=== PATIENT | female | born 1995 | race Caucasian/White ===

== ENCOUNTER 2020-12-23 00:51 | Emergency (ER) | payer BC ==
[2020-12-23] MEDS ORDERED: ACYCLOVIR 800 MG TAB PO STA (03:05)
[2020-12-23] MEDS ORDERED: ACET/COD 300 MG/30 MG STARTER PACK 6 TAB BTL PO STA (03:09)
--- NOTE | 2020-12-23 03:09 | ED ---
Skin/Abscess/FB HPI - General Chief complaint: Skin/Abscess/Foreign Body Stated complaint: Lt finger infection Time Seen by Provider: 12/23/20 02:51 Source: patient Mode of arrival: ambulatory - History of Present Illness Initial comments: 25 year-old female patient presents to the emergency department for evaluation of infection to the left index finger. States that it started several days ago as a tiny itchy blister. States that she itched it and it opened up. States now her finger is red, swollen, and covered in tiny white bumps. States that it is painful. She reports a simlar lesion in the back of her throat. She denies any fever or chills. Denies history of diabetes or HIV. - Related Data Previous Rx's Medication Instructions Recorded Acyclovir 800 mg PO BID #14 tablet 12/23/20 Acyclovir 5% Oint [Zovirax Oint] 1 applic TOPICAL 5XD #15 gm 12/23/20 Allergies Allergy/AdvReac Type Severity Reaction Status Date / Time No Known Allergies Allergy Verified 12/23/20 02:44 Review of Systems ROS Statement: Those systems with pertinent positive or pertinent negative responses have been documented in the HPI. ROS Other: All systems not noted in ROS Statement are negative. Past Medical History Past Medical History: No Reported History History of Any Multi-Drug Resistant Organisms: None Reported Past Surgical History: No Surgical Hx Reported Smoking Status: Vaper Past Alcohol Use History: None Reported Past Drug Use History: None Reported General Exam General appearance: alert, in no apparent distress, other (This is a well- developed, well-nourished adult female patient in no acute distress. Vital si gns upon presentation are temperature 98.9F, pulse 70, respirations 19, blood pressure 135/82, pulse ox 98% on room air.) ENT exam: Present: mucous membranes moist. Absent: normal exam, normal oropharynx (There is oral ulcer noted to the soft palate on the left) Respiratory exam: Present: normal lung sounds bilaterally. Absent: respiratory distress, wheezes, rales, rhonchi, stridor Cardiovascular Exam: Present: regular rate, normal rhythm, normal heart sounds. Absent: systolic murmur, diastolic murmur, rubs, gallop, clicks Extremities exam: Present: full ROM, normal capillary refill, other (There is circumferential erythema and swelling to the distal left index finger. There are white vesicles noted. Clear drainage. ). Absent: tenderness, pedal edema, joint swelling, calf tenderness Neurological exam: Present: alert, oriented X3, CN II-XII intact Psychiatric exam: Present: normal affect, normal mood Skin exam: Present: warm, dry, intact, normal color. Absent: rash Course Vital Signs 12/23/20 12/23/20 02:41 04:01 Temperature 98.9 F 98.6 F Pulse Rate 70 72 Respiratory 19 18 Rate Blood Pressure 135/82 130/78 O2 Sat by Pulse 98 98 Oximetry Medical Decision Making - Medical Decision Making 25 old female patient percents to the emergency department today for evaluation of infection to the left index finger. Physical examination did reveal circumferential erythema and swelling with tiny vesicles consistent with herpetic juan. She has a oral lesions which is also consistent with HSV. She'll be started on oral acyclovir and topical acyclovir. Given pain medication. She is currently taking doxycycline, she is instructed to continue taking this to prevent secondary infection. She is instructed to follow-up with her primary care physician for recheck in 1-2 days. Return parameters were discussed in detail. She verbalizes understanding and agrees with this plan. Case discussed with my attending Dr. Bocanegra. Disposition Clinical Impression: Herpetic juan Disposition: HOME SELF-CARE Condition: Good Instructions (If sedation given, give patient instructions): Oral Herpes Simplex Virus Infections (ED) Additional Instructions: You have a viral infection of your finger an mouth. We are going to start you on antiviral medications but you can still spread the illness. Please do not pick at the wounds. Take pain medication as directed. Finish your antibiotic in additional to the antiviral. Use the ointment as directed. Follow-up with your primary care physician for recheck in 1-2 days. Return for any new, worsening, or concerning symptoms. Prescriptions: Acyclovir 800 mg PO BID #14 tablet Acyclovir 5% Oint [Zovirax Oint] 1 applic TOPICAL 5XD #15 gm Is patient prescribed a controlled substance at d/c from ED?: No Referrals: Kelsie Del Valle NPC [Primary Care Provider] - 1-2 days Time of Disposition: 03:09
[2020-12-23] MEDS ORDERED: traMADol 50 MG STARTER PACK 3 TAB BTL PO STA (03:13)
[2020-12-23 04:09] VITALS: BP 130/78; PULSE 72; RESP 18; TEMP 98.6
== END 2020-12-23 04:01 | disposition home or self-care (01) ==
LOC: EC 00:51
DX: B00.89 Other herpesviral infection (principal); F17.290 Nicotine dependence, other tobacco product, uncomplicated
CPT/HCPCS: 99283